=== PATIENT | male | born 2000 | race African-American/Black ===

== ENCOUNTER 2025-04-09 18:23 | Emergency (ER) | payer MEDICAID ==
[~2025-04-09] VITALS: Ht 177.8 cm; Wt 90.7 kg
[2025-04-09] MEDS ORDERED: ASPIRIN 81 MG TAB.CHEW ONE (18:58)
[2025-04-09] MEDS: ASPIRIN 81 MG TAB.CHEW PO ONE (19:00)
[2025-04-09 19:07] LABS: PLATELET COUNT (AUTO) 227 K/uL (152-348); RED BLOOD CELL COUNT(AUTO) 4.97 MIL/uL (4.06-5.63); RED CELL DISTRIBUTION WIDTH 14.2 % (12.1-16.2); WHITE BLOOD COUNT (AUTO) 6.7 K/uL (3.6-10.2)
[2025-04-09 19:16] LABS: CREATININE 0.9 mg/dL (0.6-1.3); SODIUM SERUM 142 mmol/L (136-145); UREA NITROGEN, BLOOD 9 mg/dL (7-18)
[2025-04-09 19:22] LABS: ASPARTATE AMINOTRANSFERASE 6 U/L (15-37); TOTAL PROTEIN, SERUM 7.7 g/dL (6.4-8.2)
[2025-04-09 22:00] VITALS: BP 141/88
[2025-04-09 22:31] VITALS: BP 135/82; O2SAT 99
== END 2025-04-09 22:31 | disposition home or self-care (01) ==
LOC: ER 18:23
DX: R07.9 Chest pain, unspecified (principal)
CPT/HCPCS: 36415; 71045; 84484; 85025; A4606; A4663